=== PATIENT | male | born 1955 | race Caucasian/White ===

== ENCOUNTER 2017-09-05 09:19 | Day surgery (SDC) | payer OTHER ==
[~2017-09-05] VITALS: Ht 165.1 cm; Wt 75.5 kg
[2017-09-05 09:51] VITALS: Ht 165.1 cm; Wt 75.5 kg
[2017-09-05] MEDS ORDERED: ATOR40TA68 PO (10:01)
[2017-09-05] MEDS ORDERED: GLIM2TAB PO (10:01)
[2017-09-05] MEDS ORDERED: METF500T4 PO (10:01)
[2017-09-05] MEDS ORDERED: BICA50TA4 PO (10:01)
[2017-09-05] MEDS ORDERED: PROPOFOL 40 ML ONE (10:02)
[2017-09-05] MEDS ORDERED: LIDOCAINE 100 MG SYRINGE ONE (10:02)
[2017-09-05 10:09] VITALS: BP 143/81; PULSE 70; RESP 16
--- NOTE | 2017-09-05 10:40 | OPPN ---
Date/Time of Note Date/Time of Note DATE: 09/05/17 TIME: 10:36 Proc Note GI Procedure Date 09/05/17 Indication: screening/surveillance, diagnostic Pre-procedure Diagnosis 1. Anemia 2. Screening colonoscopy Post-procedure Diagnosis 1. 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
[2017-09-05 10:59] VITALS: BP 126/76; RESP 20
--- NOTE | 2017-09-05 11:23 | GILP ---
DATE OF PROCEDURE: INDICATION: A 62-year-old male undergoing this procedure for anemia and colon cancer screening. Th e risks of the procedure, related and unrelated complications, anesthetic risks, alternatives discus sed. Informed consent was obtained. DESCRIPTION OF PROCEDURE: The patient was brought to the GI lab, sedated by BRAND DIRECTOR. After obtaining sedation, scope was passed with much ease into esophagus which was grossly within normal limits. St omach mucosa revealed gastritis and there was 1 AVM 1 cm in diameter in the body of the stomach. Du odenum, first and second part was within normal limits. Retroversion done, no growth was seen 3-4 b iopsies obtained to rule out H. pylori infection and scope was removed with good patient tolerance. IMPRESSION 1. Gastritis. 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 3. Normal esophagus. 4. Normal duodenum. PLAN: Review histopathology. COLONOSCOPY REPORT. He was turned around, scope was passed with much ease into rectum, advanced thr ough sigmoid, descending, transverse colon all the way into cecum. Appendiceal orifice and IC valve identified. While coming out, mucosa thoroughly inspected. The rest of the colon was normal, exte rnal and internal hemorrhoids identified internal hemorrhoids seen on retroversion. Scope was strai ghtened out and removed with good patient tolerance. IMPRESSION 1. Normal finding all the way into cecum. 2. Internal and external hemorrhoids. 3. Clarity and cleanliness was good. PLAN: This finding cannot explain the anemia. The patient needs further workup and if iron d eficiency anemia, then he needs a capsule endoscopy. 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 Dictated By: COTY RICHEY/VERNA Conf#: [id number] DID#: [id number]
== END 2017-09-05 11:11 | disposition home or self-care (01) ==
LOC: GIL 09:19 → EDSEX 09:19 → GIL 09:26
PROVIDERS: ATTEND Internal Medicine Gastroenterology
DX: Z12.11 Encounter for screening for malignant neoplasm of colon (principal); K29.50 Unspecified chronic gastritis without bleeding; Z85.46 Personal history of malignant neoplasm of prostate; E11.9 Type 2 diabetes mellitus without complications
CPT/HCPCS: 43239; 82962; 88305; 88312; J2001; Z7610